=== PATIENT | male | born 1940 | race Caucasian/White ===

== ENCOUNTER → 2021-02-03 | Outpatient (CLI) | payer OTHER, MEDICARE ==
[~2021-02-03] MED LIST: ADULT LOW DOSE81 MG PO; AMBIEN 10 MG TA10 MG PO; FISH OIL 1,001000 M1; IBUPROFEN 600600 M1 PO; SIMVASTATIN40 MG PO; VERAPAMIL HCL120 MG PO; VERAPAMIL SR 1120 M1 PO
--- NOTE | 2021-02-03 13:25 | EKG ---
[address] [address] ELECTROCARDIOGRAM REPORT Name: GERMAN ZHU 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 DUNCAN : 1940 Requested By: Magdi Griffin Order Number: [id number] MD: Harvey Cooper Measurements Intervals [place] Rate: 50 P: 57 MN: 190 QRS: 5 QRSD: 100 T: 59 QT: 445 QTc: 406 Interpretive Statements Sinus rhythm Probable left ventricular hypertrophy Compared to ECG 11/14/2012 12:21:35 Sinus bradycardia no longer present Electronically Signed On 02-03-2021 13:25:23 DEVELOPMENT ASSOCIATE by Harvey Cooper [email or web address] <ELECTRONICALLY SIGNED> By: Harvey Cooper MD, [facility] 02/03/21 1325 [id number] [id number] Harvey Cooper MD, FACC /EPI
[2021-02-03 13:57] LABS: URINE BILIRUBIN NEGATIVE (Negative); URINE BLOOD NEGATIVE (Negative); URINE CLARITY CLEAR; URINE COLOR YELLOW; URINE GLUCOSE-RANDOM* NEGATIVE (Negative); URINE KETONES NEGATIVE (Negative); URINE LEUKOCYTES-REFLEX NEGATIVE (Negative); URINE NITRITE-REFLEX NEGATIVE (Negative); URINE PROTEIN (DIPSTICK) NEGATIVE (Negative); URINE UROBILINOGEN 0.2 E.U./dl (0.2-1.0)
[2021-02-03 14:08] LABS: HEMATOCRIT 40.8 % (42.0-52.0); HEMOGLOBIN 13.8 gm/dL (14.0-18.0); MCH 31.1 pg (26.0-34.0); MCHC 33.7 g/dL (28.0-37.0); MCV 92.2 fL (80.0-100.0); RBC 4.42 mil/uL (4.50-6.00); RDW 13.4 % (10.5-14.5); WBC 6.6 thou/uL (4.0-11.0)
[2021-02-03 14:18] LABS: ALBUMIN 3.8 g/dL (3.4-5.0); CALCIUM 8.9 mg/dL (8.5-10.1); POTASSIUM 3.8 mmol/L (3.5-5.1)
[2021-02-03 14:30] LABS: INR 0.96; PROTIME 10.5 Seconds (10.5-12.1)
== END ==
LOC: PAC 06:11
PROVIDERS: ATTEND Orthopaedic Surgery
DX: Z01.818 Encounter for other preprocedural examination (principal); M16.12 Unilateral primary osteoarthritis, left hip

== ENCOUNTER 2021-02-09 11:44 | Inpatient (IN) | payer OTHER, MEDICARE ==
[~2021-02-09] VITALS: Ht 182.9 cm; Wt 93.0 kg
[2021-02-09 13:19] VITALS: BP 138/76
[2021-02-09 18:07] VITALS: BP 116/64
--- NOTE | 2021-02-09 19:41 | NUR ---
PT ARRIVED TO FLOOR FROM RR AROUND 1800. POST OP VSS. LATE DINNER GIVEN AND WELL TOLERATED.PIVF INITIATED. PT ATE 100% OF MEAL SERVED FOR DINNER. REPORT OFF TO NAN ANDERSON.
[2021-02-09 20:42] VITALS: BP 121/68
--- NOTE | 2021-02-10 02:41 | NUR ---
ASSUMED PT CARE AT AROUND 1930 HRS. PT IS ALERT AND ORIENTED. VERY PLEASANT INDIVIDUAL. LEFT HIP WITH COURTNEY DRSG C/D/I. ICE REAL IN PLACE. USING URINAL TO VOID. GOOD CSM TO LLE. IVF AND IV ABTS INFUSING. DENIES ANY N/V.CALL LIGHT WITHIN REACH.
[2021-02-10 08:47] VITALS: BP 99/61
--- NOTE | 2021-02-10 12:32 | NUR ---
Assumed pt care at 7am,Pt in bed resting without c/o.Assessment completed.vss. Pt reported feeling better but wanted to dc home today.Meds given with breakfast and well tolerated.Dr Griffin's construction equipment technician rounded on pt.Stated that pt will be dc home in am per medicare protocol. Pt and notified, Pt c/o lt hip pain. [place] given as ordered.Will continue to monitor.
--- NOTE | 2021-02-10 13:30 | NUR ---
Pt dcing home later today or tomorrow pending how he does with therapy. He will need a rwalker for home use. Script provide to the provider plus liason and she will deliever one to his room for home use. He is hoping to do outpt therapy pending his progress with therapy. Will follow along should HH be indicated.
[2021-02-10 13:33] VITALS: BP 99/61
[2021-02-10 15:44] VITALS: BP 116/58
[2021-02-10 19:15] VITALS: BP 124/52
--- NOTE | 2021-02-10 20:59 | NUR ---
ASSUMED PT CARE AT AROUND 1915 HRS.PT ALERT AND ORIENTED. APPEARS TO BE IN NO DISTRESS. SITTING ON RECLINER. ICEPAK TO LEFT HIP. LEFT FOOT WITH GOOD CSM. PT VOIDING ADEQUATELY PER URINAL. LOOKING FORWARD TO D/C TOMORROW.CALLS APPROPRIATELY WITH NEEDS.
[2021-02-11 03:42] VITALS: BP 107/51
--- NOTE | 2021-02-11 11:58 | O ---
[facility] [place] [address] OPERATIVE REPORT Name: GERMAN ZHU Room #: 442-P ADM IN M.R.#: [id number] Admission: 02/09/21 Attend Phys: Magdi Griffin MD Discharge: Date of : 44 Report #: [id number] THIS REPORT FOR: cc: Yesy Mao MD, Aimee B. MD Abraham,Magdi Long MD ~ DATE OF SERVICE: 02/09/2021 PREOPERATIVE DIAGNOSIS: Left hip osteoarthritis. POSTOPERATIVE DIAGNOSIS: Left hip osteoarthritis. PROCEDURE: Left total hip arthroplasty. SURGEON: Magdi Griffin MD CARTON LETTERING MACHINE OPERATOR: Lucia Aguilar PA-C. INDICATION FOR CARTON LETTERING MACHINE OPERATOR: Throughout the case, extensive retraction, manipulation of the hip including dislocation and reduction was required. This was afforded to me by my admin assistant. ANESTHESIA: LMA. IMPLANTS: A Day and Nephew size 56 R3 acetabular cup with 1 acetabular screw, a size 15 high offset Synergy press-fit stem, a size 40+8 cobalt chrome head and a single Accord cerclage cable for prophylactic femur fixation. ESTIMATED BLOOD LOSS: 300 mL. COMPLICATIONS: None. SPECIMENS: None. CONDITION UPON LEAVING THE OR: Stable. INDICATIONS FOR PROCEDURE: The patient is a 80-year-old gentleman with severe left hip osteoarthritis. He had failed conservative measures for this and after discussion with him, he elected for left total hip arthroplasty. DESCRIPTION OF PROCEDURE: Risks, benefits, alternatives, complications were discussed in detail with the patient including but not limited to risk of anesthesia, risk of damage to nerves, arteries, blood vessels, risk for infection, bleeding, risk for continued hip pain, leg length discrepancy, instability and need for reoperation. Informed consent was obtained from the patient. Left hip was appropriately marked in the preoperative holding area. [address] [address] OPERATIVE REPORT Name: GERMAN ZHU Room #: 442-P [facility] IN M.R.#: [id number] Admission: 02/09/21 Attend Phys: Magdi Griffin MD Discharge: Date of : 44 Report #: [id number] IV Ancef was given for preoperative antibiotics. He was brought to the operating room and placed in supine position on the operating room table. LMA anesthesia was induced without complication. He was then placed in the right lateral decubitus position with the left hip uppermost. Left hip and lower extremity were prepped and draped in normal sterile fashion. Timeout was performed properly identifying the patient and procedure as well as instrumentation and implants. All in the operating room were in agreement. A standard posterior approach to the left hip was made with a 10 blade through the skin. Dissection was taken down to the fascia with Bovie cautery and Simons elevator was used to clean off the fascia. Fresh 10 blade was used to make a fascial incision. This was taken proximally and distally with curved Kong scissor. Charnley retractor was placed. Trochanteric bursa was taken down with Bovie cautery. Piriformis tendon was identified, tagged and taken down with Bovie. Short external rotators were also taken down with Bovie cautery. Capsulotomy was made and capsule ends were tagged for later repair. Hip was dislocated and there was extensive osteoarthritic change of the femoral head. Femoral neck cut was made 1 cm proximal to the lesser trochanter based on preoperative templating. The femoral head was removed. Deep acetabular retractors were placed. Labrum was removed sharply. Pulvinar was removed with Bovie cautery. Acetabulum was then sequentially reamed up to a size 56, at which point there was excellent bleeding cancellous bone. A size 55 trial cup was placed, found to have a good fit. A final size 56 R3 acetabular cup was placed and seated. One acetabular screw was placed for backup fixation. Polyethylene liner for a 40 head was placed. Attention was turned to the femur. This was reamed and broached up to a size 15, at which point the size 15 broach was stable, was trialed with a high offset neck and a 40+0 head. Hip was reduced, taken through range of motion, found to be unstable posteriorly as well as short. The hip was dislocated. This was trialed with a 40+8 head. Hip was reduced, taken through range of motion, found to be stable, found to have equal leg lengths. Hip was dislocated, broach was removed and a single Accord cerclage cable was placed around the proximal femur just proximal to the lesser trochanter for prophylactic fixation. Final size 15 high offset Synergy press-fit stem was placed and seated. This was trialed then with a size 40+8 head. Hip was reduced, taken through range of motion, found to be stable, found to have equal leg lengths. Hip was dislocated one last time and a final size 40+8 cobalt chrome head was placed. Hip was reduced, taken through range of motion, found to be stable, found to have equal leg lengths. Wound was thoroughly irrigated with normal saline. A periarticular injection consisting of morphine, ropivacaine, epinephrine, Toradol was placed around the hip joint capsule. A gram of vancomycin was placed deep in the joint. The fascia was closed with 0 Vicryl. Skin was closed with 2-0 Vicryl, skin staple and a [address] [place] [address] OPERATIVE REPORT Name: CHERRY ZHURY TONI Room #: 442-P ADM IN M.R.#: [id number] Admission: 02/09/21 Attend Phys: Magdi Griffin MD Discharge: Date of : 44 Report #: [id number] dressing was applied. The patient tolerated this procedure well and went to recovery room under care of Anesthesia postoperatively. <ELECTRONICALLY SIGNED> By: Magdi Griffin MD 02/11/21 1158 1504 1801 Magdi Griffin MD /nt
== END 2021-02-11 14:32 | disposition home or self-care (01) | DRG 470 ==
LOC: OR → PRE 12:04 → OR 14:07 → 4S 17:31 → OR 17:32 → 4S 02-11 14:32
PROVIDERS: ADMIT Orthopaedic Surgery; ATTEND Orthopaedic Surgery
PROC: 0SRB02A Replacement of Left Hip Joint with Metal on Polyethylene Synthetic Substitute, Uncemented, Open Approach (ICD-10-PCS; principal; 2021-02-09)
DX: M16.12 Unilateral primary osteoarthritis, left hip (principal); Z20.822 Contact with and (suspected) exposure to COVID-19; G43.909 Migraine, unspecified, not intractable, without status migrainosus; Z80.3 Family history of malignant neoplasm of breast; Z82.61 Family history of arthritis; Z82.3 Family history of stroke; Z82.49 Family history of ischemic heart disease and other diseases of the circulatory system
CPT/HCPCS: 10102; 10195; 50010; 50101; 50382; 50414; 51412; 53000; 53078; 53367; 56524; 56527; 56528; 56530; 57095; 57103; 57496; 62110; 62900; 70005